=== PATIENT | male | born 1975 | race Caucasian/White ===

== ENCOUNTER 2020-01-20 11:31 | Emergency (ER) | payer OTHER ==
[2020-01-20] MEDS ORDERED: Sulfamethoxazole/Trimethoprim 800-160 MG Tab PO ONE (11:51)
[2020-01-20] MEDS ORDERED: Bacitracin Oint 1 GM U/D Packet TOP ONE (11:51)
[2020-01-20] MEDS ORDERED: Diphtheria,Pertussis(Acell),Tetanus Vaccine 0.5 ML Syringe IM ONE (11:51)
--- NOTE | 2020-01-20 11:53 | EDM.PDOC ---
ED HPI GENERAL MEDICAL PROBLEM - General Chief Complaint: Skin Complaint Stated Complaint: RT BIG TOE PAIN Time Seen by Provider: 01/20/20 11:34 Source of Information: Reports: Patient History Limitations: Reports: No Limitations - History of Present Illness INITIAL COMMENTS - FREE TEXT/NARRATIVE: HISTORY AND PHYSICAL: History of present illness: Patient is a 44-year-old male who presents to the emergency room with complaints of left great toe pain, redness and swelling. He states he had a pedicure on 01/14/2020 and believes he has a skin infection related to this. He noticed over the past few days and the corner of his nailbed he has had redness, swelling and now a collection of "white fluid". He denies any injury, trauma or falls. No history of gout or diabetes. Offers no systemic complaints. Review of systems: As per history of present illness and below otherwise all systems reviewed and negative. Past medical history: As per history of present illness and as reviewed below otherwise noncontributory. Surgical history: As per history of present illness and as reviewed below otherwise noncontributory. Social history: See social history for further information Family history: As per history of present illness and as reviewed below otherwise noncontributory. Physical exam: General: Well developed and well nourished. Alert and orientated x 3. Nontoxic in appearance and in no acute distress. Vital signs are stable and have been reviewed by me. Nursing notes were reviewed. HEENT: Atraumatic, normocephalic, pupils equal and reactive bilaterally, negative for conjunctival pallor or scleral icterus, mucous membranes moist, TMs normal bilaterally, throat clear, neck supple, nontender, trachea midline. No drooling or trismus noted. No meningeal signs. No hot potato voice noted. Lungs: Clear to auscultation, breath sounds equal bilaterally, chest nontender. Normal work of breathing, no accessory muscles used. Heart: S1S2, regular rate and rhythm without overt murmur Abdomen: Soft, nondistended, nontender. Skin: Paronychia noted to the left medial corner of the great toe with mild redness and soft tissue swelling. Otherwise remaining skin is intact, warm, dry. No lesions or rashes noted. Hematologic: No petechiae or purpra. Mucosa appropriate color and normal nail bed color and refill. Extremities: Atraumatic, moves all extremities per self without difficulty or deficits, negative for cords or calf pain. Neurovascular unremarkable. Neuro: Awake, alert, oriented. Cranial nerves II through XII unremarkable. Cerebellum unremarkable. Motor and sensory unremarkable throughout. Exam nonfocal. Psychiatric: Mood and affect are appropriate. Normal thought process. Answering questions appropriately. Notes: Area was cleansed with an alcohol wipe and a small needle was used to puncture the skin and drain the site. Moderate amount of purulent fluid was expressed from the corner of skin adjacent to the nailbed. Area was thoroughly cleansed with chlorhexidine and bacitracin nonstick dressing was applied. Tetanus has been updated today. I have spoken with the patient/caregiver and discussed today's findings, in addition to providing specific details for plan of care. Reassessment at the time of disposition demonstrates that the patient is in no acute distress. The patient is stable for discharge, counseling was provided and we discussed in great detail signs and symptoms that would prompt them to return to the Emergency Department. Medication, follow up and supportive care measures were reviewed and discussed. Voices understanding and is agreeable to plan of care. Denies any further questions or concerns at this time. Diagnostics: None Therapeutics: Tdap, Wound care/bacitracin, Bactrim DS Prescription: Bactrim DS Impression: Paronychia Plan: 1. Today your paronychia was drained. You can apply topical bacitracin 2-3 times daily. Warm Epson salt soaks twice daily. Take the antibiotic as prescribed. 2. Tylenol and/or ibuprofen as needed for pain. 3. We encourage you to follow up with your primary care provider and/or recommended specialist in the next few days for re-evaluation and further care/m anagement. If your symptoms should worsen, new symptoms develop or any of the signs and symptoms we discussed should arise please return to the emergency room or call [phone] (if needed). Definitive disposition and diagnosis as appropriate pending reevaluation and review of above. Left Toe-Hailux Pain Score (Numeric/FACES): 6 - Related Data Allergies Allergy/AdvReac Type Severity Reaction Status Date / Time No Known Allergies Allergy Verified 01/20/20 11:41 Home Meds: Home Meds Sulfamethoxazole/Trimethoprim [Bactrim Ds Tablet] 1 each PO BID 7 Days #14 tablet 01/20/20 [Rx] Past Medical History Cardiovascular History: Reports: High Cholesterol, Hypertension Endocrine/Metabolic History: Reports: Diabetes, Type II - Infectious Disease History Infectious Disease History: Reports: Chicken Pox Social & Family History - Tobacco Use Tobacco Use Status *Q: Never Tobacco User - Caffeine Use Caffeine Use: Reports: Coffee - Recreational Drug Use Recreational Drug Use: No ED ROS GENERAL - Review of Systems Review Of Systems: Comprehensive ROS is negative, except as noted in HPI. ED EXAM, SKIN/RASH Exam: See Below (See dictation) ED SKIN PROCEDURES - I&D Site: Left great toe Skin Prep: Isopropyl Alcohol (Alcohol), Sterile Drape Area Incised With: Needle Drainage: Purulent, Moderate Amount Probed to Break Up Loculations: No Sterile Dressing: Adhesive Dressing Complications: No Course - Vital Signs Last Recorded V/S: Last Vital Signs Temp 96.7 F L 01/20/20 11:43 Pulse 66 01/20/20 11:43 Resp 18 01/20/20 11:43 BP 125/81 01/20/20 11:43 Pulse Ox 96 01/20/20 11:43 - Orders/Labs/Meds Orders: Active Orders 24 hr Category Date Time Status Vaccines to be Administered [RC] PER UNIT ROUTINE Care 01/20/20 11:51 Ordered Meds: Medications Discontinued Medications Generic Name Dose Route Start Last Admin Trade Name William PRN Reason Stop Dose Admin Bacitracin 1 dose 01/20/20 11:51 Bacitracin Oint 1 Gm TOP 01/20/20 11:52 ONETIME ONE Diphtheria/Tetanus/Acell Pertussis 0.5 ml 01/20/20 11:51 Adacel IM 01/20/20 11:52 .ONCE ONE Trimethoprim/Sulfamethoxazole 1 tab 01/20/20 11:51 Septra Ds PO 01/20/20 11:52 ONETIME ONE Departure - Departure Time of Disposition: 11:57 Disposition: Home, Self-Care 01 Clinical Impression: Paronychia - Discharge Information Prescriptions: Sulfamethoxazole/Trimethoprim [Bactrim Ds Tablet] 1 each PO BID 7 Days #14 tablet Referrals: Nory Haq BLOCK MAKING MACHINE OPERATOR [Primary Care Provider] - Forms: ED Department Discharge Additional Instructions: The following information is given to patients seen in the emergency department who are being discharged to home. This information is to outline your options for follow-up care. We provide all patients seen in our emergency department with a follow-up referral. The need for follow-up, as well as the timing and circumstances, are variable depending upon the specifics of your emergency department visit. If you don't have a primary care physician on staff, we will provide you with a referral. We always advise you to contact your personal physician following an emergency department visit to inform them of the circumstance of the visit and for follow-up with them and/or the need for any referrals to a consulting specialist. The emergency department will also refer you to a specialist when appropriate. This referral assures that you have the opportunity for follow-up care with a specialist. All of these measure are taken in an effort to provide you with optimal care, which includes your follow-up. Under all circumstances we always encourage you to contact your private physician who remains a resource for coordinating your care. When calling for follow-up care, please make the office aware that this follow-up is from your recent emergency room visit. If for any reason you are refused follow-up, please contact the [facility] Emergency Department at and asked to speak to the emergency department charge nurse. [facility] [address] [place] [id number] [address] [address] Thank you for choosing the [facility] emergency department in [place] for your medical needs today. It was a pleasure caring for you. Today you were seen in the emergency department for skin infection. 1. Today your paronychia was drained. You can apply topical bacitracin 2-3 times daily. Warm Epson salt soaks twice daily. Take the antibiotic as prescribed. 2. Tylenol and/or ibuprofen as needed for pain. 3. We encourage you to follow up with your primary care provider and/or recommended specialist in the next few days for re-evaluation and further care/management. If your symptoms should worsen, new symptoms develop or any of the signs and symptoms we discussed should arise please return to the emergency room or call [phone] (if needed). Sepsis Event Note (ED) - Evaluation Sepsis Screening Result: No Definite Risk - Focused Exam Vital Signs: Vital Signs Temp Pulse Resp BP Pulse Ox 01/20/20 11:43 96.7 F L 66 18 125/81 96 - My Orders Last 24 Hours: My Active Orders 01/20/20 11:51 Vaccines to be Administered [RC] PER UNIT ROUTINE - Assessment/Plan Last 24 Hours: My Active Orders 01/20/20 11:51 Vaccines to be Administered [RC] PER UNIT ROUTINE
== END 2020-01-20 12:14 | disposition home or self-care (01) ==
LOC: MW.ED 11:31
DX: L03.031 Cellulitis of right toe (principal); I10 Essential (primary) hypertension; E11.9 Type 2 diabetes mellitus without complications; Z23 Encounter for immunization
CPT/HCPCS: 10060; 90471; 90715; 99283; A9270; 99282